=== PATIENT | male | born 1990 | race Caucasian/White ===

== ENCOUNTER 2016-06-23 22:45 | Emergency (ER) | payer OTHER ==
[~2016-06-23] VITALS: Ht 165.1 cm; Wt 107.5 kg
[~2016-06-23 22:45] MED LIST: ATIVAN0.5 M1 PO; BENADRYL50 MG PO; BENAZEPRIL10 M1 PO; FENOFIBRATE MI134 MG PO; GLIPIZIDE5 M2 PO; GLUCOTROL10 MG PO; GLUCOTROL5 MG PO; HALDOL1 MG PO; INVOKANA100 MG PO; LANTUS SOLOS100 U/ML SUBQ; METFORMIN1000 MG PO; ONGLYZA5 MG PO; SIMVASTATIN10 M1 PO; TRICOR145 MG PO; VICTOZA6 MG/ML SUBQ; VITAMIN D2000 I1 PO
[2016-06-23 22:55] VITALS: BP 124/69
--- NOTE | 2016-06-23 23:00 | NUR ---
BIBA TO OF 3
--- NOTE | 2016-06-23 23:15 | NUR ---
Patient being evaluated by DURGA SIMS at bedside.
--- NOTE | 2016-06-23 23:40 | NUR ---
Patient discharged with v/s stable. Written and verbal after care instructions given and explained to parent/guardian. Parent/Guardian verbalized understanding. Ambulatorysteady gait. All questions addressed prior to discharge. Advised to follow up with PMD.
[2016-06-23 23:57] VITALS: BP 124/69
--- NOTE | 2016-06-23 23:59 | NUR ---
25Y/M PATIENT BIBA TO ED WITH C/O EPISODE OF COMBATIVE, PER EMS, PT. HAD EPISODE OF COMBATIVE WITH FATHER; SKIN IS PINK/WARM/DRY; AAOX1, PT. MENTAL RETARDATION, WITH EVEN AND STEADY GAIT; LUNGS CLEAR BL; HR EVEN AND REGULAR; PT DENIES ANY FEVER, CP, SOB, OR COUGH AT THIS TIME; PATIENT STATES PAIN OF 0/10 AT THIS TIME; VSS; ER MD MADE AWARE OF PT STATUS.
== END 2016-06-23 23:40 | disposition home or self-care (01) ==
LOC: MED 22:46
DX: F84.0 Autistic disorder (principal); E11.9 Type 2 diabetes mellitus without complications; Z79.4 Long term (current) use of insulin; Z79.899 Other long term (current) drug therapy

== ENCOUNTER 2016-08-04 19:53 | Emergency (ER) | payer OTHER ==
[~2016-08-04] VITALS: Ht 165.1 cm; Wt 105.7 kg
--- NOTE | 2016-08-04 20:00 | NUR ---
Jaime mijares in [facility] - 08/04/16 at 2248 by JACOB PT TAKEN TO [facility]
--- NOTE | 2016-08-04 20:15 | NUR ---
Jaime mijares in [facility] - 08/05/16 at [address] Montalvo evaluating patient
[2016-08-04 20:49] VITALS: BP 142/88
--- NOTE | 2016-08-04 22:35 | NUR ---
PATIENT LEFT WITHOUT BEING SEEN BY DR. ENGEL . NO FURTHER CARE PROVIDED FOR PATIENT.
== END 2016-08-04 22:39 | disposition left against medical advice (07) ==
LOC: MED 19:53
DX: F41.9 Anxiety disorder, unspecified (principal); Z53.21 Procedure and treatment not carried out due to patient leaving prior to being seen by health care provider